=== PATIENT | female | born 1995 | race Caucasian/White ===

== ENCOUNTER 2020-03-12 14:44 | Outpatient (CLI) | payer OTHER, SELFPAY ==
[2020-03-14 13:01] LABS: Quantiferon Mitogen >10.00 IU/mL; Quantiferon Nil 0.03 IU/mL; Quantiferon Plus TB1 <0.00 IU/mL; Quantiferon TB Gold NEGATIVE (NEGATIVE)
== END 2020-03-12 14:45 | disposition home or self-care (01) ==
PROVIDERS: PCP Family Medicine; Visit Provider Internal Medicine
DX: Z91.09 Other allergy status, other than to drugs and biological substances (principal)
CPT/HCPCS: 36415; 86480

== ENCOUNTER 2020-11-10 16:38 | Inpatient (IN) | payer OTHER, SELFPAY ==
[2020-11-10] VITALS (52 sets, daily range): BP systolic 93–153; BP diastolic 50–84; PULSE 75–118; RESP 20; TEMP 36.1–36.6; O2SAT 99–100; BMI 35.3
[2020-11-10] MEDS: lactated ringers 1,000 ML 999 ML IV (17:26)
[2020-11-10 17:59] LABS: Basophils % 0.2 %; Eosinophils % 0.4 %; Hematocrit 37.4 % (37.0-47.0); Hemoglobin 12.3 g/dL (11.5-15.3); Lymphocytes # 1.7 10^3/uL (0.8-4.8); Lymphocytes % 16.8 %; Mean Corpuscular HGB Conc 32.9 g/dL (30.0-36.0); Mean Corpuscular Volume 91.2 fL (81-99); Mean Platelet Volume 11.3 fL (7.4-10.4); Monocytes # 0.7 10^3/uL (0.2-0.9); Monocytes % 7.2 %; Neutrophils # 7.65 10^3/uL (1.8-7.7); Nucleated Red Blood Cells % 0 %; Platelet Count 254 10^3/cmm (130-400); Red Cell Distribution Width 13.6 % (12.1-15.1); White Blood Count 10.2 10^3/uL (4.0-10.0)
--- NOTE | 2020-11-10 18:41 | ANES.PREANE2 ---
Pre-Anesthetic Assessment Pre-Anesthetic Assessment: Height/Weight: Temp Pulse BP Pulse Ox 97.9 F 114 H 138/64 99 11/10/20 16:10 11/10/20 18:37 11/10/20 18:37 11/10/20 18:34 Preop Diagnosis: labor pain Proposed Procedure: labor epidural Was Beta Fer taken within 24 hours: N/A Was Clonidine taken within 24 hours: N/A Social: Social History: No alcohol and No tobacco Exam: Pre-Anes Outpt Exam: alert and oriented x 3 Airway: Submandibular: WNL Cervical ROM: WNL MP: 1 History/ROS: No significant history except as noted and No significant complaints Anesthetic Plan: ASA status: 2 Anesthesia: Anesthesia Evaluation and Regional (specify below) Other: labor epidurla Risk of > 500 ml blood loss (7ml/kg in children): No Meds/Allergies Current Medications: Current Medications Generic Name Dose Route Start Last Admin Trade Name Freq PRN Reason Stop Dose Admin Lactated Ringer's 1,000 mls @ 999 m ls/hr 11/10/20 16:25 11/10/20 17:26 Lactated Ringers IV 999 mls/hr .Q1H1M PRN Administration See label comment s Data Anesthesia CBC & Chem 7: 11/10/20 17:05 Other Labs: Laboratory Results - last 48 hr 11/10/20 17:05 WBC 10.2 H RBC 4.10 Hgb 12.3 Hct 37.4 MCV 91.2 MCH 30.0 MCHC 32.9 RDW 13.6 Plt Count 254 MPV 11.3 H Neut % (Auto) 75.0 Lymph % (Auto) 16.8 [place] % (Auto) 7.2 Eos % (Auto) 0.4 Baso % (Auto) 0.2 Neut # (Auto) 7.65 Lymph # (Auto) 1.7 [place] # (Auto) 0.7 Eos # (Auto) 0.0 Baso # (Auto) 0.0 Nucleated RBC % (auto) 0 Nucleated RBCs # 0.0 Cardiac Studies: No Data to Display Anesthesia Procedures Date of Procedure: 11/10/20 Procedure Narrative: labor epidural Epidural: Time Out Performed: Yes Consents Signed: Procedure Consent Consent: from patient Lumbar Level: L3-L4 Epidural position: sitting Epidural procedure: sterile prep of area, 1% lidocaine to numb the area, neg for paresthesia, test dose given (3ml), 1.5% xylocaine 1:200k epi (3ml), 0.2% Ropivacaine bolus ml (5ml), placed PCEA, no systemic response, sterile dressing applied, L.U.D. no apparent complications and 0.2% Ropiavacaine @ mls/hr (13) Additional Comments: CONSENT OBTAINED, STERILE PREP AND DRAPE. POS LOSS OF RESISTANCE, CATH THREADED EASILY. TOLERATED WELL. GOOD PAIN RELIEF NOTED. LOT [id number] EXP 2021-03-07
[2020-11-10] MEDS: ondansetron 2 mg/ML SDV 2 mL 4 MG IVP (19:58)
[2020-11-10] MEDS: dextrose 5%-lactated ringers 1,000 ML 125 ML IV (19:58)
[2020-11-10] MEDS: acetaminophen 325 mg Tablet 650 MG PO (23:16)
[2020-11-11] VITALS (36 sets, daily range): BP systolic 96–161; BP diastolic 51–86; PULSE 68–203; RESP 15–16; TEMP 36.2–36.7
[2020-11-11] MEDS: ondansetron 2 mg/ML SDV 2 mL 4 MG IVP (03:07)
--- NOTE | 2020-11-11 04:25 | P.PCNOB_ITS ---
Delivery Note: Date of delivery: November 11, 2020 Pre-Delivery Course: The patient is a pleasant 139-week female infant who had an unremarkable . Her blood type is a positive. She is GBS negative. Her glucose screen was negative. And the remainder of her labs within normal limits. The patient presented to the hospital in active labor. She was 5 cm dilated. She received an epidural. She progressed to 8 cm. An amniotomy was performed. She then progressed to complete without difficulty. She pushed for less than an hour. Delivery: DELIVERY: The patient progressed to complete without difficulty. She delivered a female with a weight of 8 pounds 0 ounces with Apgars of 7, 9. The baby was delivered from the KATERIN position and placed on the mother's abdomen. The baby's mouth and nose were suctioned. The cord was then clamped and cut. There was a nuchal cord x1 which was reduced at the perineum. There was no meconium. The placenta and 3 vessel cord were delivered intact shortly thereafter. The perineum and vaginal vault were carefully examined. A posterior vaginal wall laceration was noted. Both the mother and the baby were in stable condition. A&P Assessment and plan (1) 39 weeks gestation of : I anticipate routine care. If the patient continues to do well, I anticipate she will be able to go home tomorrow morning. Status: Acute (2) Spontaneous vaginal delivery: Status: Acute Coding Level of Care Code Acute Design Printing Machine Setter for Chg Fwd Diagnoses 39 weeks gestation of Z3A.39 Spontaneous vaginal delivery O80
[2020-11-11] MEDS: docusate sodium 100 mg Capsule PO ×2 (11:38→18:17)
[2020-11-11] MEDS: prenatal vitamin Capsule 1 CAP PO (11:38)
[2020-11-11] MEDS: ibuprofen 800 mg tablet PO ×3 (11:38→20:29)
[2020-11-11 17:56] LABS: Hematocrit 34.9 % (37.0-47.0); Hemoglobin 11.5 g/dL (11.5-15.3); Mean Corpuscular Hemoglobin 29.7 pg (28.0-34.0); Mean Corpuscular Volume 90.2 fL (81-99); Mean Platelet Volume 11.3 fL (7.4-10.4); Platelet Count 236 10^3/cmm (130-400); Red Blood Count 3.87 10^6/uL (4.1-5.3); Red Cell Distribution Width 13.7 % (12.1-15.1); White Blood Count 10.4 10^3/uL (4.0-10.0)
[2020-11-12 05:00] VITALS: BP 128/78; PULSE 78; RESP 15; TEMP 36.4
--- NOTE | 2020-11-12 08:14 | PM.OBGYDC ---
Discharge Providers QUALITY ASSURANCE SUPERVISOR FINAL Date of Admission: 11/10/20 16:38 Date of Discharge: 11/12/20 Attending Provider at Admission: Christian Lackey MD Attending Provider at Discharge: Christian Lackey MD Primary Care Provider: Chen Vasquez MD Diagnoses at Discharge Discharge Diagnosis (1) 39 weeks gestation of : Status: Acute (2) Spontaneous vaginal delivery: Status: Acute Reason for Visit Reason for Visit: Contractions Hospital Course Hospital Course The patient presented to the hospital in active labor. She had an epidural. She progressed to complete and had an unremarkable delivery of a healthy-appearing 39-week female . She had no significant tears. She had minimal bleeding. Her course was unremarkable. Her bleeding was within normal limits. She was able to breast-feed well independently at times. Information Peripartum Data: Infant Delivery Method: Vaginal Physical Exam Narrative: EXAM NARRATIVE: The patient is alert. She appears comfortable. Her heart has a regular rate and rhythm with no murmurs appreciated. Lungs are clear to auscultation bilaterally. Her fundus is firm and below the umbilicus. Urinary Catheter Management^: Thakkar: Cath Placed During This Visit: yes, but has since been removed by the nurse Reason for Continuing Indwelling Catheter: Decision to DC Catheter Urinary Catheter Date of Insertion: 11/10/20 Urinary Catheter Time of Insertion: 18:48 Date Urinary Catheter Removed: 11/11/20 Time Urinary Catheter Discontinued: 02:58 Discharge Data Data Completed and Pending: Labs from last 24 hours 11/11/20 17:31 WBC 10.4 H RBC 3.87 L Hgb 11.5 Hct 34.9 L MCV 90.2 MCH 29.7 MCHC 33.0 RDW 13.7 Plt Count 236 MPV 11.3 H Vitals: Last Vital Signs Temp 97.5 F L 11/12/20 05:00 Pulse 78 11/12/20 05:00 Resp 15 11/12/20 05:00 BP 128/78 11/12/20 05:00 Pulse Ox 100 11/10/20 19:24 Discharge Plan Discharge Patient Disposition: Home Condition: Stable Prescriptions: New ibuprofen 800 mg Tablet 800 mg PO TID Qty: 45 RF: 0 Continued 1 tab PO DAILY RF: 0 Discontinued diphenhydramine HCl [Unisom SleepGels] 50 mg Capsule 50 mg PO Q6H PRN (Reason: Sleep) RF: 0 Discharge Orders: Discharge Order (Routine); Ordered 11/12/20 Ordered By: Christian Lackey Referrals: Christian Lackey MD [Physician] - 6 Weeks Discharge Diet: Usual diet Discharge Activity: Limit activity as instructed Patient Instructions: Vitamins (By mouth), Pre-eclampsia and Eclampsia (DC), Bleeding (DC), OB Discharge Report, OB Food/Drug Interaction Guide, Opioid Safety, OB Proud Parent Packet, OB Vaginal Deliveries Activity Restrictions/Additional Instructions: Apple Almeida is our counselor. Her phone number is [phone] or [phone]. [phone]. The first number is her home number. Please contact her or the OB department to schedule an consultation. Discharge Attestations QUALITY ASSURANCE SUPERVISOR FINAL Time Spent in Discharge Care*: less than 30 min Specific Discharge Activities: Specific discharge activities: educating patient Coding Level of Care Code Acute Scrum Project Manager for Chg Fwd Diagnoses 39 weeks gestation of Z3A.39 Spontaneous vaginal delivery O80
[2020-11-12] MEDS: lanolin oint 7 gm 1 APPLIC TOPICAL (09:11)
[2020-11-12] MEDS: benzocaine-menthol 78 gm Canister 1 SPRAY TOPICAL (09:11)
[2020-11-12] MEDS: ibuprofen 800 mg tablet PO (09:11)
[2020-11-12] MEDS: docusate sodium 100 mg Capsule PO (09:11)
[2020-11-12] MEDS: prenatal vitamin Capsule 1 CAP PO (09:11)
[2020-11-12 09:46] VITALS: BP 121/81; PULSE 85; RESP 16; TEMP 36.9
[2020-11-12] MEDS: measles,mumps,rubella pf Vial (w/diluent) 0.5 ML SUBCUT (10:22)
== END 2020-11-12 10:59 | disposition home or self-care (01) | DRG 807 ==
LOC: OPOB 16:38 → OBGYN 16:38
PROVIDERS: Admitting Provider Family Medicine; PCP Family Medicine; Visit Provider Family Medicine
DX: O69.2XX0 Labor and delivery complicated by other cord entanglement, with compression, not applicable or unspecified (principal); Z37.0 Single live birth; Z3A.39 39 weeks gestation of pregnancy
CPT/HCPCS: 12345; 36415; 51702; 59025; 59409; 85025; 85027; 90707; 96372; 96374; 96375; 99211; J2405; J2795

== ENCOUNTER 2021-10-03 22:56 | Emergency (ER) | payer OTHER, SELFPAY ==
[2021-10-03 23:09] VITALS: BP 132/87; PULSE 90; RESP 16; TEMP 36.8; O2SAT 98; BMI 31.8
--- NOTE | 2021-10-03 23:13 | ED_ITS ---
HPI - Chest Pain General: Chief Complaint: Chest Pain Stated Complaint: allergic reaction Time Seen by Provider: 10/03/21 23:04 Source: patient Mode of arrival: ambulatory Limitations: no limitations History of Present Illness: 26-year-old female who states she has been having a rash after using new cleaning supplies 2 days ago she states she has been on steroids over the last 2 days with minimal improvement states that she has a rash to her chest abdomen and arms is quite pruritic she denies any shortness of breath denies any throat swelling denies any vomiting she had some slight abdominal pains. She denies any worsening improving factors. Associated symptoms: Deny abdominal pain, dyspnea, fever(s), nausea or vomiting Review of Systems Const: Denies: fever(s), chills, body aches or change in appetite Eyes: Denies: blurry vision or eye discomfort ENMT: Denies: throat pain or dental pain Card: Denies: chest pain Resp: Denies: dyspnea GI: Denies: abdominal pain, nausea, vomiting or diarrhea : Denies: dysuria Musc: Denies: neck pain or back pain Skin/Breast: Reports: rash Neuro: Denies: headache(s) Psych: Denies: depression Randy/Lymph: Denies: easy bruising All/Imm: Denies: urticaria PFSH ED PFSH: Medical History No pertinent past medical history Social History (Updated 10/03/21 @ 23:15 by Yuan Farias MD) Substance/Drug Use: never Physical Exam Const: COMMON NORMALS: no acute distress, patient oriented x3 and healthy appearing HENMT: COMMON NORMALS: normocephalic and atraumatic HEAD & SCALP: n ormocephalic and atraumatic Eye: COMMON NORMALS: Equal, round and reactive pupils present and EOMs intact bilaterally PUPIL: Yes Equal, round and reactive pupils present Neck/C-Spine: COMMON NORMALS: full ROM and supple Chest: COMMONS NORMALS: normal inspection of the chest and normal palpation of entire chest wall Resp: COMMON NORMALS: normal respiratory effort, No retractions, No use of accessory muscles and clear to auscultation bilaterally AUSCULTATION: clear to auscultation bilaterally Cardio: COMMON NORMALS: regular rate, regular rhythm and No murmurs present (Cardio) RATE: regular rate RHYTHM: regular rhythm GI: COMMON NORMALS: Normal to inspection, nondistended, normoactive bowel sounds present, Soft to palpation, non-tender and no masses PALPATION: Yes Soft to palpation Extremity: COMMON NORMALS: normal to inspection and full ROM Neuro: COMMON NORMALS: patient oriented x3, moves all extremities and no focal motor deficits Psych: COMMON NORMALS: mental status grossly normal, Normal thought process present and cooperative THOUGHT PROCESS: Normal thought process present Skin: COMMON NORMALS: no wounds NARRATIVE SKIN EXAM: Urticarial rash to trunk and arms Course Vital Signs: Vital signs: Vital Signs Temperature 98.3 F 10/03/21 23:09 Pulse Rate 90 10/03/21 23:09 Respiratory Rate 16 10/03/21 23:09 Blood Pressure 132/87 10/03/21 23:09 Pulse Oximetry 98 10/03/21 23:09 MDM - Chest Pain Medical Decision Making Patient presents with allergic reaction her rash is much improved here after epinephrine. Patient's blood work here is improved she has no signs of severe allergic reaction she is to continue her steroids she is stable for discharge she is to follow-up with her PCP and return if worsening. Lab Data : 10/04/21 00:19 10/04/21 00:19 Laboratory Results WBC 11.4 10^3/uL (4.0-10.0) H 10/04/21 00:19 RBC 4.44 10^6/uL (4.1-5.3) 10/04/21 00:19 Hgb 13.0 g/dL (11.5-15.3) 10/04/21 00:19 Hct 40.4 % (37.0-47.0) 10/04/21 00:19 MCV 91.0 fl (81-99) 10/04/21 00:19 MCH 29.3 pg (28.0-34.0) 10/04/21 00:19 MCHC 32.2 g/dL (30.0-36.0) 10/04/21 00:19 RDW 12.5 % (12.1-15.1) 10/04/21 00:19 Plt Count 321 10^3/cmm (130-400) 10/04/21 00:19 MPV 10.3 fL (7.4-10.4) 10/04/21 00:19 Neut % (Auto) 70.2 % 10/04/21 00:19 Lymph % (Auto) 20.2 % 10/04/21 00:19 [place] % (Auto) 8.9 % 10/04/21 00:19 Eos % (Auto) 0.1 % 10/04/21 00:19 Baso % (Auto) 0.2 % 10/04/21 00:19 Neut # (Auto) 8.02 10^3/uL (1.8-7.7) H 10/04/21 00:19 Lymph # (Auto) 2.3 10^3/uL (0.8-4.8) 10/04/21 00:19 [place] # (Auto) 1.0 10^3/uL (0.2-0.9) H 10/04/21 00:19 Eos # (Auto) 0.0 10^3/uL (0.0-0.8) 10/04/21 00:19 Baso # (Auto) 0.0 10^3/uL (0.0-0.1) 10/04/21 00:19 Nucleated RBC % (auto) 0 % 10/04/21 00:19 Nucleated RBCs # 0.0 /100WBC 10/04/21 00:19 Sodium 140 mmol/L (136-145) 10/04/21 00:19 Potassium 3.9 mmol/L (3.5-5.1) 10/04/21 00:19 Chloride 107 mmol/L (98-107) 10/04/21 00:19 Carbon Dioxide 25 mmol/L (22-29) 10/04/21 00:19 Anion Gap 11.9 (5-19) 10/04/21 00:19 BUN 17 mg/dL (6-20) 10/04/21 00:19 Creatinine 0.7 mg/dL (0.5-0.9) 10/04/21 00:19 GFR Calculation 102.0 mL/min (90-130) 10/04/21 00:19 Glucose 100 mg/dL (65-115) 10/04/21 00:19 Calculated Osmolality 292 mOsm/kg (285-295) 10/04/21 00:19 Calcium 8.6 mg/dL (8.5-10.5) 10/04/21 00:19 Total Bilirubin 0.2 mg/dL (0.15-1.2) 10/04/21 00:19 AST 11 U/L (0-32) 10/04/21 00:19 ALT 16 U/L (0-33) 10/04/21 00:19 Alkaline Phosphatase 50 IU/L (35-105) 10/04/21 00:19 Total Protein 6.2 g/dL (6.6-8.7) L 10/04/21 00:19 Albumin 4.1 g/dL (3.5-5.2) 10/04/21 00:19 Globulin 2.1 g/dL (1.3-4.6) 10/04/21 00:19 Lipase 26 U/L (13-60) 10/04/21 00:19 EKG Data EKG 1: I personally reviewed and interpreted this EKG as follows: EKG interpretation date: 10/03/21 EKG interpretation time: 23:05 Interpretation: nsr hr [address] or t wave abnormalities qrs 98 qtc 396 Discharge Plan Discharge Patient Disposition: Home Clinical Impression: Allergic reaction Prescriptions: No Action 1 tab PO DAILY 0RF ibuprofen 800 mg Tablet 800 mg PO TID Qty: 45 0RF Unisom SleepGels 50 mg Capsule 50 mg PO BEDTIME PRN (Reason: Sleep) 0RF Discharge Orders: Discharge ED (Routine); Ordered 10/04/21 Ordered By: Yuan Farias Referrals: Christian Lackey MD [Primary Care Provider] - Discharge Diet: Advance as tolerated Discharge Activity: Resume usual activity Coding Level of Care Code ED Studio Camera Operator for Chg Fwd Exam Comprehensive
[2021-10-03] MEDS: diphenhydrAMINE 50 mg/mL SDV 1mL IVP (23:43)
[2021-10-03] MEDS: ondansetron 2 mg/ML SDV 2 mL 4 MG IVP (23:43)
[2021-10-03] MEDS: famotidine 20 mg/2 mL INJ 40 MG IVP (23:43)
[2021-10-03] MEDS: EPINEPHrine 1 mg/mL INJ 0.3 MG IM (23:44)
--- NOTE | 2021-10-03 23:56 | XRR_ITS ---
PROCEDURE INFORMATION: Exam: XR Chest Exam date and time: 10/04/2021 12:11 AM Age: 26 years old Clinical indication: Chest pressure; Patient HX: C/O chest/epigastric pain TECHNIQUE: Imaging protocol: XR of the chest. Views: 1 view. COMPARISON: No relevant prior studies available. FINDINGS: Lungs: Unremarkable. No consolidation. Pleural spaces: Unremarkable. No pleural effusion. No pneumothorax. Heart/Mediastinum: Unremarkable. No cardiomegaly. Bones/joints: Unremarkable. XR/XR chest 1V portable 50012 IMPRESSION: No acute findings.
[2021-10-04 00:39] LABS: Basophils % 0.2 %; Eosinophils % 0.1 %; Hematocrit 40.4 % (37.0-47.0); Lymphocytes # 2.3 10^3/uL (0.8-4.8); Lymphocytes % 20.2 %; Mean Corpuscular HGB Conc 32.2 g/dL (30.0-36.0); Mean Corpuscular Hemoglobin 29.3 pg (28.0-34.0); Mean Platelet Volume 10.3 fL (7.4-10.4); Monocytes % 8.9 %; Neutrophils # 8.02 10^3/uL (1.8-7.7); Neutrophils % 70.2 %; Nucleated Red Blood Cells % 0 %; Platelet Count 321 10^3/cmm (130-400); Red Blood Count 4.44 10^6/uL (4.1-5.3); Red Cell Distribution Width 12.5 % (12.1-15.1); White Blood Count 11.4 10^3/uL (4.0-10.0)
[2021-10-04 00:51] LABS: Alanine Aminotransferase 16 U/L (0-33); Albumin Level 4.1 g/dL (3.5-5.2); Alkaline Phosphatase 50 IU/L (35-105); Anion Gap 11.9 (5-19); Aspartate Amino Transferase 11 U/L (0-32); Blood Urea Nitrogen 17 mg/dL (6-20); Calcium 8.6 mg/dL (8.5-10.5); Carbon Dioxide 25 mmol/L (22-29); Chloride 107 mmol/L (98-107); Globulin 2.1 g/dL (1.3-4.6); Glucose 100 mg/dL (65-115); Lipase 26 U/L (13-60); Osmolality Calculated 292 mOsm/kg (285-295); Potassium 3.9 mmol/L (3.5-5.1); Sodium 140 mmol/L (136-145); Total Bilirubin 0.2 mg/dL (0.15-1.2); Total Protein 6.2 g/dL (6.6-8.7)
== END 2021-10-04 01:37 | disposition home or self-care (01) ==
PROVIDERS: Emergency Provider Emergency Medicine; PCP Family Medicine
DX: T78.40XA Allergy, unspecified, initial encounter (principal); X58.XXXA Exposure to other specified factors, initial encounter
CPT/HCPCS: 71045; 80053; 83690; 85025; 96372; 96374; 96375; 99284; J0171; J1200; J2405; J3490

== ENCOUNTER 2024-02-06 00:36 | Inpatient (IN) | payer OTHER, SELFPAY ==
[2024-02-05 23:55] VITALS: BMI 38.7
[2024-02-06] VITALS (28 sets, daily range): BP systolic 103–195; BP diastolic 54–84; PULSE 80–103; RESP 15–18; TEMP 36.5–37.3; O2SAT 97–99
[2024-02-06] MEDS: lactated ringers 1,000 ML 999 ML IV (00:40)
[2024-02-06] MEDS: ampicillin 2,000 MG in sodium chloride 0.9% (plus) 50 ML 100 MG IV (00:40)
[2024-02-06 00:53] LABS: Basophils % 0.2 %; Eosinophils # 0.1 10^3/uL (0.0-0.8); Eosinophils % 0.7 %; Hematocrit 33.9 % (36-47); Lymphocytes % 30.2 %; Mean Corpuscular HGB Conc 32.2 g/dL (30-55); Mean Corpuscular Hemoglobin 27.2 pg (27-33); Mean Corpuscular Volume 84.5 fl (85-98); Mean Platelet Volume 10.7 fL (7.4-10.4); Monocytes # 0.9 10^3/uL (0.2-0.9); Monocytes % 9.3 %; Neutrophils # 5.89 10^3/uL (1.8-7.7); Neutrophils % 59.2 %; Nucleated Red Blood Cells % 0 %; Platelet Count 327 10^3/cmm (157-399); Red Blood Count 4.01 10^6/uL (3.85-5.65); Red Cell Distribution Width 13.7 % (12.1-15.1); White Blood Count 9.94 10^3/uL (3.29-11.43)
[2024-02-06] MEDS: oxytocin 30 UNIT/500 ML BAG 600 UNIT IV (01:18)
--- NOTE | 2024-02-06 01:54 | PM.OPHPUD ---
Labor & Delivery H&P Update Date of Procedure: February 06, 2024 Date H&P Performed: 02/02/24 Changes to previous documentation: The patient demonstrated cervical change Admission Diagnosis: 28-year-old 2 para 1-0-0-1 at 39 weeks estimated gestational age in active labor Planned procedure: Vaginal delivery Other information: The patient is an otherwise healthy 28-year old female at 39 weeks estimated gestational age who presented to the hospital with consistent contractions and spontaneous rupture of membranes. The membranes had ruptured just prior to coming to the hospital. She had no other significant symptoms. Her was relatively unremarkable. She had consistent care. Her blood work was also relatively unremarkable. Her blood type was a positive. Her antibody screen was negative. She passed her 3-hour glucose screen. Her infectious disease profile was otherwise unremarkable. She is GBS positive. Related Problem List Diagnoses (1) 39 weeks gestation of : (2) Group beta Strep positive: A&P Assessment and plan (1) 39 weeks gestation of : Routine labor is anticipated. She will be given antibiotics per protocol for group B strep. Status: Acute (2) Group beta Strep positive: Status: Acute
--- NOTE | 2024-02-06 02:02 | PM.DELIVERY ---
Delivery Note: Date of delivery: February 06, 2024 Pre-delivery diagnoses: 28-year-old 2 para 1-0-0-1 at 39 weeks estimated gestational age in active labor Post-delivery diagnoses: Status post spontaneous vaginal delivery Procedure: Spontaneous vaginal delivery Estimated blood loss (mL): 75 Pre-Delivery Course: The patient presented to the hospital in active labor. She quickly progressed to complete. She did not have adequate time for 4 hours of antibiotics due to her group B strep status. No epidural was placed due to her rapid progression. Delivery: DELIVERY: The patient progressed to complete without difficulty. She delivered a male with a weight of 8 pounds 14 ounces with Apgars of 8, 9. The baby was delivered from the KATEIRN position and placed on the mother's abdomen. The cord was then clamped and cut. There was no nuchal cord. There was no meconium. The placenta and 3 vessel cord were delivered intact shortly thereafter. The perineum and vaginal vault were carefully examined. No lacerations were noted. Both the mother and the baby were in stable condition. Post-Delivery Status: Good A&P Assessment and plan (1) 39 weeks gestation of : (2) Group beta Strep positive: (3) Spontaneous vaginal delivery: I anticipate routine care Coding Level of Care Code Acute Code for Chg Fwd Diagnoses 39 weeks gestation of Z3A.39 Group beta Strep positive B95.1 Spontaneous vaginal delivery O80
[2024-02-06] MEDS: HYDROcodone-acetaminophen 5-325 mg Tablet PO (05:20)
[2024-02-06] MEDS: benzocaine-menthol 78 gm Canister 1 SPRAY TOPICAL (05:20)
[2024-02-06] MEDS: lanolin oint 7 gm 1 APPLIC TOPICAL (05:21)
[2024-02-06] MEDS: docusate sodium 100 mg Capsule PO ×2 (09:41→17:25)
[2024-02-06] MEDS: PRENATAL VIT NO.130/IRON/FOLIC 1 EACH TABLET PO (09:41)
[2024-02-06] MEDS: ibuprofen 800 mg tablet PO ×3 (09:41→21:56)
[2024-02-06 13:26] LABS: Hematocrit 32.2 % (36-47); Mean Corpuscular HGB Conc 31.7 g/dL (30-55); Mean Corpuscular Hemoglobin 27.7 pg (27-33); Mean Corpuscular Volume 87.5 fl (85-98); Mean Platelet Volume 10.4 fL (7.4-10.4); Platelet Count 286 10^3/cmm (157-399); Red Blood Count 3.68 10^6/uL (3.85-5.65); Red Cell Distribution Width 13.7 % (12.1-15.1); White Blood Count 10.69 10^3/uL (3.29-11.43)
[2024-02-07 04:00] VITALS: BP 106/71; PULSE 84; RESP 18; TEMP 36.9
[2024-02-07] MEDS: ibuprofen 800 mg tablet PO (08:18)
[2024-02-07] MEDS: PRENATAL VIT NO.130/IRON/FOLIC 1 EACH TABLET PO (08:18)
[2024-02-07] MEDS: docusate sodium 100 mg Capsule PO (08:18)
--- NOTE | 2024-02-07 09:37 | PM.OBGYDC ---
Discharge Providers HAND WRAPPER OPERATOR Date of Admission: 02/06/24 00:36 Date of Discharge: 02/07/24 Attending Provider at Admission: Christian Lackey MD Attending Provider at Discharge: Christian Lackey MD Primary Care Provider: Christian Lackey MD Diagnoses at Discharge Discharge Diagnosis (1) 39 weeks gestation of : Status: Acute (2) Group beta Strep positive: Status: Acute (3) Spontaneous vaginal delivery: Status: Acute Reason for Visit Reason for Visit: possible ROM Hospital Course Hospital Course Patient presented to the hospital with spontaneous rupture of membranes in active labor. She had an unremarkable labor and delivery. Her course has also been unremarkable. Her bleeding has been within normal limits. She has been breast-feeding well. Her pain has been well-controlled. There have been no concerns. After discharge, she will continue to room in with her baby due to her baby is GBS positive status and inadequate antibiotic coverage. Information Peripartum Data: Infant Delivery Method: Vaginal Physical Exam Narrative: The patient is alert. She appears comfortable. Her heart has a regular rate and rhythm with no murmurs appreciated. Lungs are clear to auscultation bilaterally. Her fundus is firm and below the umbilicus. Discharge Data Studies Completed and Pending Laboratory Results WBC 10.69 10^3/uL (3.29-11.43) 02/06/24 13:18 RBC 3.68 10^6/uL (3.85-5.65) L 02/06/24 13:18 Hgb 10.20 g/dL (11.27-16.99) L 02/06/24 13:18 Hct 32.2 % (36-47) L 02/06/24 13:18 MCV 87.5 fl (85-98) 02/06/24 13:18 MCH 27.7 pg (27-33) 02/06/24 13:18 MCHC 31.7 g/dL (30-55) 02/06/24 13:18 RDW 13.7 % (12.1-15.1) 02/06/24 13:18 Plt Count 286 10^3/cmm (157-399) 02/06/24 13:18 MPV 10.4 fL (7.4-10.4) 02/06/24 13:18 Neut % (Auto) 59.2 % 02/06/24 00:27 Lymph % (Auto) 30.2 % 02/06/24 00:27 [place] % (Auto) 9.3 % 02/06/24 00:27 Eos % (Auto) 0.7 % 02/06/24 00:27 Baso % (Auto) 0.2 % 02/06/24 00:27 Neut # (Auto) 5.89 10^3/uL (1.8-7.7) 02/06/24 00:27 Lymph # (Auto) 3.0 10^3/uL (0.8-4.8) 02/06/24 00:27 [place] # (Auto) 0.9 10^3/uL (0.2-0.9) 02/06/24 00:27 Eos # (Auto) 0.1 10^3/uL (0.0-0.8) 02/06/24 00:27 Baso # (Auto) 0.0 10^3/uL (0.0-0.1) 02/06/24 00:27 Nucleated RBC % (auto) 0 % 02/06/24 00:27 Nucleated RBCs # 0.0 /100WBC 02/06/24 00:27 Blood Type A Positive 02/06/24 01:18 Rho(D) Type Rh positive 02/06/24 01:18 Antibody Screen Negative 02/06/24 01:18 Vitals Last Vital Signs Temp 98.5 F 02/07/24 04:00 Pulse 84 02/07/24 04:00 Resp 18 02/07/24 04:00 BP 106/71 02/07/24 04:00 Pulse Ox 98 02/06/24 22:57 O2 Del Method Room Air 02/06/24 22:57 Results Labs OB ([facility]): Blood Type A Positive 02/06/24 Antibody Screen Negative 02/06/24 Hct 32.2 % (36-47) L 02/06/24 Hgb 10.20 g/dL (11.27-16.99) L 02/06/24 Rho(D) Type Rh positive 02/06/24 Plt Count 286 10^3/cmm (157-399) 02/06/24 Discharge Plan Discharge Patient Disposition: Home Condition: Stable Prescriptions: New ibuprofen 800 mg Tablet 800 mg PO TID Qty: 45 0RF Vitamin 27 mg iron- 800 mcg Tablet 1 tab PO DAILY Qty: 90 0RF Discontinued diphenhydramine HCl [Unisom SleepGels] 50 mg Capsule 50 mg PO BEDTIME PRN (Reason: Sleep) Discharge Orders: Discharge Order (Routine); Ordered 02/07/24 Ordered By: Christian Lackey Referrals: Christian Lackey MD [Primary Care Provider] - 6 Weeks (* Please call the office first thing Thursday to make your [address] Lackey. [phone]) Patient Instructions: Depression (DC), Bleeding (DC), Preeclampsia and Eclampsia After Delivery (GEN), Hemorrhage (DC), OB Discharge Report, OB Food/Drug Interaction Guide, Opioid Safety, OB Home Care, OB Proud Parent Packet, OB Vaginal Deliveries Discharge Attestations HAND WRAPPER OPERATOR Time Spent in Discharge Care*: less than 30 min Coding Level of Care Code Acute Code for Chg Fwd Diagnoses 39 weeks gestation of Z3A.39 Group beta Strep positive B95.1 Spontaneous vaginal delivery O80
[2024-02-07 12:47] VITALS: BP 127/77; PULSE 84; RESP 16; TEMP 36.8; O2SAT 97
== END 2024-02-07 12:49 | disposition home or self-care (01) | DRG 807 ==
LOC: OPOB 00:36 → OBGYN 00:36
PROVIDERS: Admitting Provider Family Medicine; PCP Family Medicine; Visit Provider Family Medicine
DX: O99.824 Streptococcus B carrier state complicating childbirth (principal); Z37.0 Single live birth; Z3A.39 39 weeks gestation of pregnancy
CPT/HCPCS: 36415; 59025; 59409; 83986; 85025; 85027; 86850; 86900; 99211; J0290; J2590; J7120